=== PATIENT | male | born 1960 | race Hispanic/Latino ===

== ENCOUNTER 2025-06-11 08:16 | Outpatient (CLI) | payer MEDICARE ==
[2025-06-11 11:07] LABS: Estimated GFR - POC 74.0
[2025-06-11] MEDS ORDERED: Iopamidol 300 61% 100 ML VIAL FS ONE (13:41)
== END 2025-06-11 08:17 | disposition home or self-care (01) ==
LOC: CSHCT 08:16
PROVIDERS: ATTEND Nurse Practitioner Family
DX: R10.10 Upper abdominal pain, unspecified (principal); N32.89 Other specified disorders of bladder
CPT/HCPCS: 74178; 82565; Q9967